=== PATIENT | male | born 1995 | race Caucasian/White ===

== ENCOUNTER 2020-03-25 06:15 | Emergency (ER) | payer OTHER ==
--- NOTE | 2020-03-25 07:39 | CT ---
PRELIMINARY REPORT/[facility]/EMERGENCY AFTER HOURS PROCEDURE: EXAM: CT Head and Cervical Spine Without IV contrast. CLINICAL HISTORY: Patient brought to the ER by EMS after he was found unresponsive on the sidewalk [facility]. Patient is now awake and alert. He smelled strongly of alcohol. He admits to drinking heavily last night but does not recall how he ended up outside or on the ground. He denies any compla ints of pain. EMS placed him in a cervical collar prior to transport. TECHNIQUE: Axial computed tomography images were acquired of the head and the cervical spine without intravenous contrast. Sagittal and coronal reformatted images were obtained of the cervical spine. COMPARISON: None provided. FINDINGS: BRAIN: No acute intraparenchymal hemorrhage. No mass lesion. No CT evidence for acute territorial inf arct. No midline shift or extra-axial collection. VENTRICLES No hydrocephalus. ORBITS The orbits are unremarkable. SINUSES AND MASTOIDS The paranasal sinuses and mastoid air cells are clear. SOFT TISSUES No significant facial or scalp soft tissue swelling evident. No radiopaque foreign body is seen. BONES No acute osseous pathology evident. No acute fracture is evident on images of the head or cervi janessa spine. DISKS/DEGENERATIVE CHANGES No significant disc or facet degeneration. Posterior cervical spine vertebral body alignment is within normal limits. IMPRESSION: 1. No acute intracranial findings. No acute intracranial injury evident. 2. No cervical spine fracture evident. ELECTRONICALLY SIGNED BY: Saji Dean MD Mar 25, 2020 7:17:10 AM [employer] FINAL REPORT CT CERVICAL SPINE NONCONTRAST: DATE: 03/25/2020. TIME: Performed on emergency basis at 0652 hours. HISTORY: Fall. Neck injury. FINDINGS: Agree with the preliminary report by Dr. Dean from [facility]. No acute osseous abnormalities a re demonstrated. Transcribed Date/Time: 03/25/2020 7:53 AM
--- NOTE | 2020-03-25 07:41 | CT ---
PRELIMINARY REPORT/[facility]/EMERGENCY AFTER HOURS PROCEDURE: EXAM: CT Head and Cervical Spine Without IV contrast. CLINICAL HISTORY: Patient brought to the ER by EMS after he was found unresponsive on the sidewalk [facility]. Patient is now awake and alert. He smelled strongly of alcohol. He admits to drinking heavily last night but does not recall how he ended up outside or on the ground. He denies any compla ints of pain. EMS placed him in a cervical collar prior to transport. TECHNIQUE: Axial computed tomography images were acquired of the head and the cervical spine without intravenous contrast. Sagittal and coronal reformatted images were obtained of the cervical spine. COMPARISON: None provided. FINDINGS: BRAIN: No acute intraparenchymal hemorrhage. No mass lesion. No CT evidence for acute territorial inf arct. No midline shift or extra-axial collection. VENTRICLES No hydrocephalus. ORBITS The orbits are unremarkable. SINUSES AND MASTOIDS The paranasal sinuses and mastoid air cells are clear. SOFT TISSUES No significant facial or scalp soft tissue swelling evident. No radiopaque foreign body is seen. BONES No acute osseous pathology evident. No acute fracture is evident on images of the head or cervi janessa spine. DISKS/DEGENERATIVE CHANGES No significant disc or facet degeneration. Posterior cervical spine vertebral body alignment is within normal limits. IMPRESSION: 1. No acute intracranial findings. No acute intracranial injury evident. 2. No cervical spine fracture evident. ELECTRONICALLY SIGNED BY: Saji Dean MD Mar 25, 2020 7:17:10 AM [facility] FINAL REPORT CT HEAD NONCONTRAST: DATE: 03/25/2020. TIME: Performed on an emergency basis at 0653 hours. HISTORY: Fall. Head injury. FINDINGS: There is no evidence of acute intracranial hemorrhage or infarct. Findings agree with the preliminary report by Dr. Dean from [facility]. No acute abnormalities are demonstrated. Transcribed Date/Time: 03/25/2020 7:51 AM
== END 2020-03-25 08:10 | disposition home or self-care (01) ==
LOC: ERS 06:15
DX: F10.129 Alcohol abuse with intoxication, unspecified (principal); R41.82 Altered mental status, unspecified; Y90.8 Blood alcohol level of 240 mg/100 ml or more
CPT/HCPCS: 36415; 70450; 72125; 80307